=== PATIENT | female | born 1955 | race Two or more races ===

== ENCOUNTER → 2020-01-18 | Outpatient (CLI) | payer OTHER | END | disposition home or self-care (01) | LOC: OFIC 805 13:54 | PROVIDERS: ATTEND Otolaryngology | DX: R13.19 Other dysphagia (principal); R49.0 Dysphonia; K21.9 Gastro-esophageal reflux disease without esophagitis ==

== ENCOUNTER 2020-02-29 10:41 | Outpatient (CLI) | payer OTHER | END 2020-02-29 11:00 | disposition home or self-care (01) | LOC: OFIC 805 10:41 | PROVIDERS: ATTEND Otolaryngology | DX: K21.9 Gastro-esophageal reflux disease without esophagitis (principal); R49.0 Dysphonia; R13.19 Other dysphagia ==

== ENCOUNTER 2020-05-16 09:35 | Outpatient (CLI) | payer OTHER | END 2020-05-16 12:54 | disposition home or self-care (01) | LOC: OFIC 805 09:35 | PROVIDERS: ATTEND Otolaryngology | DX: R49.0 Dysphonia (principal); K21.9 Gastro-esophageal reflux disease without esophagitis; R13.19 Other dysphagia ==